=== PATIENT | male | born 1955 ===

== ENCOUNTER → 2024-01-31 06:22 | Day surgery (SDC) | payer OTHER, SELFPAY | LOC: GI 06:22 | PROVIDERS: ATTENDING PHYSICIAN Internal Medicine Gastroenterology; FAMILY PHYSICIAN Internal Medicine | DX: R13.10 Dysphagia, unspecified (principal); K44.9 Diaphragmatic hernia without obstruction or gangrene; K22.10 Ulcer of esophagus without bleeding; K22.2 Esophageal obstruction; K22.89 Other specified disease of esophagus | CPT/HCPCS: 43239; 88305; 88312; 88342 ==

== ENCOUNTER 2024-04-02 06:19 | Day surgery (SDC) | payer MEDICARE, SELFPAY | END 2024-04-02 12:19 | disposition home or self-care (01) | LOC: GI 06:19 | PROVIDERS: ATTENDING PHYSICIAN Internal Medicine Gastroenterology | DX: R13.14 Dysphagia, pharyngoesophageal phase (principal); K22.89 Other specified disease of esophagus; K22.2 Esophageal obstruction; K44.9 Diaphragmatic hernia without obstruction or gangrene | CPT/HCPCS: 43249; 43239; 88305 ==